=== PATIENT | female | born 1950 | race Caucasian/White ===

== ENCOUNTER 2016-11-25 11:30 | Emergency (ER) | payer MEDICARE, BC ==
[2016-11-25 11:51] VITALS: BP 135/89
--- NOTE | 2016-11-25 12:03 | EDM.PDOC ---
ED HPI SEIZURE COMPLAINT - General Chief Complaint: Neuro Symptoms/Deficits Stated Complaint: Dizzy Time Seen by Provider: 11/25/16 11:50 Source of Information: Reports: Patient History Limitations: Reports: No limitations - History of Present Illness INITIAL COMMENTS - FREE TEXT/NARRATIVE: This patient is a 66 year old female that presents to the ER with family. The reports the patient was outside planting a tree this morning. The patient reports that she was outside planitng a tree this morning. She reports giong outside about 10am. She reports she was standing a messing with a wire, she went to bend over in a standing position, then stood back up. She reports when standing back up she became dizzy. She reports thats all she remembers, then remembers being in her home with . The reports that the patient walked into the home with grass on her back and was confused. The asked her if she got the tree planted and the patient asked what he was talking about. As the patient arrived here in the ER via private vehicle, the patient is awake, alert, and oriented. She is able to tell me she was outside planting a tree and messing with wire. She reports that is dizzy, and her dizziness is worse if she changes positions quickly or goes to stand up. She reports that she does have a headache. She does not recall passing out or falling. The patient denies any unilateral weaknesses. She denies n, v, d, f, neck pain,neck stiffness, cp, soa, abd pain, urinary changes, bowel changes, rashes. She is fully alert and oriented. Stroke score is 0. Symptom Onset Date: 11/25/16 Event Occurred (Where): home Event (Witnessed/Unwitnessed): unwitnessed Severity: moderate Context: Reports: illness ("Bronchitis, treated Saturday with abx and steroids") Pre Event Symptom(s): Reports: headaches, syncope, weakness (generally). Denies : chest pain, cough, diaphoresis, fever/chills, loss of appetite, malaise, nausea/vomiting, rash, shortness of breath Event Symptoms: Reports: confusion (intially, resolved. ), headaches, syncope, weakness (genereally). Denies: incontinence, tongue biting, chest pain, diaphoresis, fever/chills, loss of appetite, malaise, nausea/vomiting, rash, shortness of breath Post Event Symptoms: Reports: confused (resolved.), headache - Related Data Allergies/ADRs: Allergies Allergy/AdvReac Type Severity Reaction Status Date / Time sulfamethoxazole Allergy Cannot Verified 11/25/16 11:51 [From Bactrim] Remember trimethoprim [From Bactrim] Allergy Cannot Verified 11/25/16 11:51 Remember Home Meds: Home Meds Amitriptyline [Elavil] 10 mg PO BEDTIME 09/22/15 [History] Ascorbate Calcium [Vitamin C] 1 tab PO DAILY 09/22/15 [History] Aspirin [Low Dose Aspirin EC] 81 mg PO DAILY 09/22/15 [History] Betamethasone Valerate 1 applic TOP DAILY PRN 09/22/15 [History] Calcium Carbonate/Vitamin D3 [Calcium 600 + Vit D 400 Tablet] 1 tab PO DAILY 10/04 [History] Cetirizine [ZyrTEC] 10 mg PO DAILY 09/22/15 [History] Cholecalciferol (Vitamin D3) [Vitamin D3] 2,000 unit PO DAILY 09/22/15 [History] Estradiol [Estradiol] 1 mg PO DAILY 09/22/15 [History] Levothyroxine Sodium [Synthroid] 125 mcg PO DAILY 09/22/15 [History] Mometasone Furoate [Nasonex] 2 sprays NASBOTH BEDTIME PRN 09/22/15 [History] Multivitamin [Multivitamins] 1 cap PO DAILY 09/22/15 [History] Vit A/C/E AC/Znox/Cupric Oxide [Eye Vitamin-Minerals Tablet] 1 tab PO DAILY 10/04 [History] Azithromycin 500 mg PO ASDIRECTED 11/25/16 [History] Prednisone [IJD: Prednisone] 10 mg PO ASDIRECTED 11/25/16 [History] Social & Family History - Tobacco Use Smoking Status *Q: Never Smoker - Caffeine Use Caffeine Use: Reports: Coffee - Recreational Drug Use Recreational Drug Use: No ED ROS GENERAL - Review of Systems Review Of Systems: See Below Constitutional: Reports: weakness (general) HEENT: Reports: Sinus problem (congestion) Respiratory: Reports: No Symptoms Cardiovascular: Reports: No symptoms Endocrine: Reports: no symptoms GI/Abdominal: Reports: No symptoms : Reports: no symptoms Musculoskeletal: Reports: no symptoms Skin: Reports: no symptoms Neurological: Reports: Dizziness, Headache Psychiatric: Reports: No symptoms Hematologic/Lymphatic: Reports: no symptoms Immunologic: Reports: no symptoms - Physical Exam Exam: See Below Exam Limited By: No limitations General Appearance: alert, WD/WN, no apparent distress Eye Exam: bilateral eye: EOMI, normal inspection, PERRL Ears: normal external exam, normal canal, hearing grossly normal, normal TMs Nose: normal inspection, normal mucosa, no blood Throat/Mouth: Normal inspection, Normal lips, Normal teeth, Normal gums, Normal oropharynx, Normal voice, No airway compromise Head Exam: atraumatic, normocephalic Neck: normal inspection, supple, non-tender, full range of motion Respiratory/Chest: no respiratory distress, lungs clear, normal breath sounds, no accessory muscle use Cardiovascular: normal peripheral pulses, regular rate, rhythm, no edema, no gallop, no JVD, no murmur, no rub GI/Abdominal: soft, non tender, no abnormal bruit Neuro Exam (Abbreviated): alert, oriented, CN II-XII intact, normal cognition, normal gait, no motor/sensory deficits Back Exam: normal inspection, full range of motion Extremities: normal inspection, normal range of motion, non-tender, no pedal edema, normal capillary refill Psychiatric: normal affect, normal mood Skin Exam: Warm, Dry, Intact, Normal color, No rash EKG INTERPRETATION EKG Date: 11/25/16 Time: 11:38 Rhythm: NSR Rate (beats/min): 75 [place]: normal P-wave: present QRS: normal ST-T: normal QT: normal Comparison: NA - no prior EKG Course - Vital Signs Last Recorded V/S: Last Vital Signs Temp 97.3 F 11/25/16 11:48 Pulse 79 11/25/16 11:48 Resp 20 11/25/16 11:48 BP 135/89 11/25/16 11:48 Pulse Ox 95 11/25/16 11:48 Orthostatic Blood Pressure [ 133/95 Standing] Orthostatic Blood Pressure [ 129/85 Supine] Orthostatic Blood Pressure [ 130/98 Sitting] - Orders/Labs/Meds Orders: Active Orders 24 hr Category Date Time Status Orthostatic Vital Signs [RC] ASDIRECTED Care 11/25/16 13:11 Active Chest 2V [CR] Stat Exams 05/07/17 11:38 Ordered Head wo Cont [CT] Stat Exams 11/25/16 11:38 Ordered EKG 12 Lead [EK] Stat Ther 11/25/16 11:38 Ordered Labs: Laboratory Tests 11/25/16 11/25/16 11/25/16 Range/Units 11:38 11:51 12:18 WBC 7.5 (5.0-10.0) 10^3/uL RBC 4.35 (4.00-5.50) 10^6/uL Hgb 13.2 (12.0-16.0) g/dL Hct 40.4 (37.0-47.0) % MCV 92.9 (82.0-94.0) fL MCH 30.3 (27.0-32.0) pg MCHC 32.7 L (33.0-38.0) g/dL RDW Coeff of Nora 13.6 (11.0-15.0) % Plt Count 168 (150-400) 10^3/uL Neut % (Auto) 67.1 (35-85) % Lymph % (Auto) 25.7 (10-55) % Spencer % (Auto) 5.8 (0-16) % Eos % (Auto) 1.1 (0-5) % Baso % (Auto) 0.3 (0-3) % Neut # (Auto) 5.02 (1.80-7.00) 10^3/uL Lymph # (Auto) 1.92 (1.00-4.80) 10^3/uL Spencer # (Auto) 0.43 (0.00-0.80) 10^3/uL Eos # (Auto) 0.08 (0.00-0.45) 10^3/uL Baso # (Auto) 0.02 10^3/uL Sodium 138 (136-145) mEq/L Potassium 3.1 L (3.5-5.0) mEq/L Chloride 101 (98-106) mEq/L Carbon Dioxide 25 (21-32) mmol/L BUN 17 D (7-18) mg/dL Creatinine 1.0 (0.6-1.0) mg/dL Est Cr Clr Drug Dosing 43.77 mL/min Estimated GFR (MDRD) 55 L (>=60) mL/min Glucose 127 H D (75-99) mg/dL Calcium 8.4 (8.4-10.1) mg/dL Total Bilirubin 0.3 (0.0-1.0) mg/dL AST 25 (15-37) U/L ALT 26 (12-78) U/L Alkaline Phosphatase 75 (46-116) U/L Troponin I 0.023 (0.00-0.06) ng/mL Total Protein 7.2 (6.4-8.2) g/dL Albumin 3.3 L (3.4-5.0) g/dL Urine Color Yellow (YELLOW) Urine Appearance Slightly cloudy (CLEAR) Urine pH 5.5 (4.5-8.0) Ur Specific [place] 1.007 (1.003-1.020) Urine Protein Negative (NEGATIVE) mg/dL Urine Glucose (UA) Negative (NEGATIVE) mg/dL Urine Ketones Negative (NEGATIVE) mg/dL Urine Occult Blood Negative (NEGATIVE) Urine Nitrite Negative (NEGATIVE) Urine Bilirubin Negative (NEGATIVE) Urine Urobilinogen 0.2 (0.2-1.0) EU/dL Ur Leukocyte Esterase Negative (NEGATIVE) Urine RBC Not seen (0-5) /HPF Urine WBC Not seen (0-5) /HPF Ur Squamous Epith Cells Moderate H (NOT SEEN) /HPF Amorphous Sediment Moderate H (NOT SEEN) /HPF Urine Bacteria Few H (NOT SEEN) /HPF Meds: Medications Discontinued Medications Generic Name Dose Route Start Last Admin Trade Name Bharathq PRN Reason Stop Dose Admin Acetaminophen 1,000 mg 11/25/16 13:11 11/25/16 13:29 Tylenol Extra Strength PO 11/25/16 13:12 1,000 mg ONETIME ONE Administration Sodium Chloride 1,000 mls @ 1,000 mls/hr 11/25/16 13:11 11/25/16 13:29 Normal Saline IV 11/25/16 14:10 1,000 mls/hr .BOLUS ONE Administration Sodium Chloride 1,000 mls @ 1,000 mls/hr 11/25/16 14:41 11/25/16 14:46 Normal Saline IV 11/25/16 15:40 1,000 mls/hr .BOLUS ONE Administration Sodium Chloride 1,000 mls @ 999 mls/hr 11/25/16 14:42 11/25/16 14:51 Normal Saline IV 11/25/16 15:42 Not Given .BOLUS ONE Sodium Chloride Confirm 11/25/16 14:54 11/25/16 14:51 Normal Saline Administered 11/25/16 14:55 Not Given Dose 1,000 mls @ as directed .ROUTE .STK-MED ONE Potassium Chloride 40 meq 11/25/16 13:36 11/25/16 14:41 Klor-Con 10 PO 11/25/16 13:37 40 meq ONETIME ONE Administration - Radiology Interpretation Free Text/Narrative:: CXR: No infiltrate, no edema, no cardiac enlargement. Head: No acute findings. Discussed with radiologist. CT Results Date: 11/25/16 - Re-Assessments/Exams Free Text/Narrative Re-Assessment/Exam: 11/25/16 13:25 Patient orthostatics are stable, but patient did become dizzy with position changes. 11/25/16 14:42 Patient does report that she is feeling better and less dizzy after 1 L NS. Patient was able to ambulate to the bathroom without difficulty. I will give another L NS and discharge. She is educated when to return and followup with her PCP tomorrow. She says she would like to go home. She reports she did not drink much water. 11/25/16 15:41 After patient received 2L NS, she said she feels much better and is no longer dizzy. She is ambulating without difficulty and fully alert and oriented. No neurological deficits. She reports she would like to go home. I will discharge. Departure - Departure Time of Disposition: 14:17 Disposition: Home, Self-Care 01 Condition: good Clinical Impression: Near syncope, Dehydration, Hypokalemia Instructions: Syncope, [id number], Near-Syncope, [id number], Dehydration, Adult, [id number] Referrals: Jalil Evans MD [Primary Care Provider] - Forms: ED Department Discharge Additional Instructions: Followup with your primary care provider Return to the ER for worsening of condition or any emergent concerns Increase fluids Go home and rest No physical labor activity while feeling ill, or on steroids, or for the next few days - My Orders Last 24 Hours: My Active Orders 11/25/16 11:38 Chest 2V [CR] Stat Head wo Cont [CT] Stat EKG 12 Lead [EK] Stat 11/25/16 13:11 Orthostatic Vital Signs [RC] ASDIRECTED - Assessment/Plan Last 24 Hours: My Active Orders 11/25/16 11:38 Chest 2V [CR] Stat Head wo Cont [CT] Stat EKG 12 Lead [EK] Stat 11/25/16 13:11 Orthostatic Vital Signs [RC] ASDIRECTED Plan: PLEASE SEE RN NOTE FOR PFSH.
[2016-11-25] MEDS ORDERED: Sodium Chloride 0.9% 1,000 ML IV ONE ×3 (13:11→14:42)
[2016-11-25] MEDS ORDERED: Acetaminophen 500 MG Tab PO ONE (13:11)
[2016-11-25] MEDS ORDERED: Potassium Chloride 10 MEQ Tab.ER PO ONE (13:36)
[2016-11-25] MEDS ORDERED: Sodium Chloride 0.9% 1,000 ML ONE (14:54)
== END 2016-11-25 15:50 | disposition home or self-care (01) ==
LOC: CC.ED 11:30
DX: R55 Syncope and collapse (principal); E86.0 Dehydration; E87.6 Hypokalemia; Z88.2 Allergy status to sulfonamides; Z88.8 Allergy status to other drugs, medicaments and biological substances; Z79.82 Long term (current) use of aspirin; Z79.899 Other long term (current) drug therapy
CPT/HCPCS: 36415; 70450; 71020; 80053; 81001; 84484; 85025; 93005; 96360; 96361; 99285; A9270; J7030; 93010; 99284